=== PATIENT | male | born 1960 | race Caucasian/White ===

== ENCOUNTER 2016-11-18 18:36 | Emergency (ER) | payer BC ==
[2016-11-18 18:47] VITALS: BP 150/96
--- NOTE | 2016-11-18 19:25 | UC ---
Skin Complaint HPI - HPI Summary HPI Summary: 56 yo male abraided his left langford on a pipe this am concerned he might need a tetanus booster review or our records show his last Td was 2014 min pain - History of Current Complaint Chief Complaint: UCLaceration Time Seen by Provider: 11/18/16 19:08 Stated Complaint: LANGFORD INJURY Hx Obtained From: Patient Onset/Duration: Sudden Onset Skin Exposure Onset/Duration: Hours Ago Timing: Constant Onset Severity: Moderate Current Severity: Mild Pain Intensity: 1 Pain Scale Used: 0-10 Numeric Location: Other - left langford Character: Painful Aggravating: Touch Alleviating: Nothing Associated Signs & Symptoms: Positive: Negative - Allergy/Home Medications Allergies/Adverse Reactions: Allergies Allergy/AdvReac Type Severity Reaction Status Date / Time Ciprofloxacin Allergy Intermediate mouth edema Verified 11/18/16 18:47 Review of Systems Constitutional: Negative Skin: Negative Eyes: Negative ENT: Negative Respiratory: Negative Cardiovascular: Negative Gastrointestinal: Negative Genitourinary: Negative Motor: Negative Neurovascular: Negative Musculoskeletal: Negative Neurological: Negative Psychological: Negative All Other Systems Reviewed And Are Negative: Yes PMH/Surg Hx/FS Hx/Imm Hx Previously Healthy: Yes Endocrine History Of: Denies: Diabetes Cardiovascular History Of: Reports: Cardiac Disorders - CARDIAC ABLASION 2007, Hypertension Denies: Pacemaker/ICD GI/ History Of: Reports: Ulcer Denies: Renal Disease - Surgical History Surgical History: Yes Surgery Procedure, Year, and Place: small bowel resection 2010. appendectomy 2010. GALL BLADDER 2008. CARDIAC ABLASION REMOVAL 2007 - Family History Known Family History: Positive: Hypertension - Social History Alcohol Use: Occasionally Substance Use Type: None Smoking Status (MU): Never Smoked Tobacco - Immunization History Most Recent Tetanus Shot: 08/17/14 Physical Exam Triage Information Reviewed: Yes Appearance: Well-Appearing, No Pain Distress, Well-Nourished Vital Signs: Initial Vital Signs Temp 97.2 F 11/18/16 18:43 Pulse 78 11/18/16 18:43 Resp 16 11/18/16 18:43 BP 150/96 11/18/16 18:43 Vital Signs Reviewed: Yes Eyes: Positive: Conjunctiva Clear ENT: Positive: Normal ENT inspection. Negative: Nasal congestion, Nasal drainage, Trismus, Muffled/hoarse voice Neck: Positive: Supple, Nontender Respiratory: Positive: Lungs clear, Normal breath sounds, No respiratory distress Cardiovascular: Positive: RRR, No Murmur Musculoskeletal: Positive: ROM Intact, No Edema Neurological: Positive: Alert Skin Exam: Other - three small superficial abrasions to left langford Course/Dx - Diagnoses Provider Diagnoses: abrasions left langford Discharge - Discharge Plan Condition: Stable Disposition: HOME Prescriptions: Mupirocin 2% OINT* [Bactroban 2 % Oint*] 1 applic TOPICAL TID #1 tube Patient Education Materials: Abrasion (ED) Referrals: Manuel Snider MD [Primary Care Provider] - If Needed Additional Instructions: gently clean 2-3 x daily with soap and water dry apply a thin film of antibiotic oint (bactroban) recheck for concerns of infection your last tetanus was 2013
== END 2016-11-18 19:29 | disposition home or self-care (01) ==
LOC: UCEAST 18:36
DX: S80.812A Abrasion, left lower leg, initial encounter (principal); W22.8XXA Striking against or struck by other objects, initial encounter; Y93.9 Activity, unspecified; Y92.9 Unspecified place or not applicable; Z88.1 Allergy status to other antibiotic agents; I51.89 Other ill-defined heart diseases; Z90.49 Acquired absence of other specified parts of digestive tract
CPT/HCPCS: 99212; G0463

== ENCOUNTER 2017-09-10 17:30 | Emergency (ER) | payer BC ==
[2017-09-10 17:58] VITALS: BP 144/86
[2017-09-10] MEDS ORDERED: Tetan/Diph/Pertus SYR(Tdap)* 0.5 ML SYR(BOOSTRIX) use SYR IM ONE (18:08)
[2017-09-10] MEDS ORDERED: Lidocaine 2% PF * 5 ML VIAL INJ ONE (18:33)
--- NOTE | 2017-09-10 19:18 | UC ---
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 - History Of Current Complaint Chief Complaint: UCLaceration Stated Complaint: FINGER LACERATION Time Seen by Provider: 09/10/17 17:48 Hx Obtained From: Patient, Family/Woven Blind Loom Tender Laceration Location: Finger Mechanism Of Injury: Sharp Trauma Onset/Duration: Lasting Hours Severity: Mild Aggravating Factors: Nothing Related History: Dominant Hand Right - Allergies/Home Medications Allergies/Adverse Reactions: Allergies Allergy/AdvReac Type Severity Reaction Status Date / Time Ciprofloxacin Allergy Intermediate mouth edema Verified 09/10/17 17:48 PMH/Surg Hx/FS Hx/Imm Hx Previously Healthy: Yes - Surgical History Surgical History: Yes Surgery Procedure, Year, and Place: small bowel resection 2010. appendectomy 2010. GALL BLADDER 2008. CARDIAC ABLASION REMOVAL 2007 - Family History Known Family History: Positive: Hypertension Negative: Blood Disorder - Social History Occupation: Retired Lives: With Family Alcohol Use: Occasionally Substance Use Type: None Smoking Status (MU): Never Smoked Tobacco - Immunization History Most Recent Tetanus Shot: 08/17/14, pt wants a booster. Review of Systems Constitutional: Negative Skin: Other - LACERATION RIGHT SECOND FINGER (PIP JOINT) Eyes: Negative ENT: Negative Respiratory: Negative Cardiovascular: Negative Gastrointestinal: Negative Genitourinary: Negative Motor: Negative Neurovascular: Negative Musculoskeletal: Negative Neurological: Negative Psychological: Negative Is Patient Immunocompromised?: No All Other Systems Reviewed And Are Negative: Yes Physical Exam Triage Information Reviewed: Yes Appearance: Well-Appearing Vital Signs: Initial Vital Signs Temp 98.4 F 09/10/17 17:51 Pulse 62 09/10/17 17:51 Resp 18 09/10/17 17:51 BP 144/86 09/10/17 17:51 Pulse Ox 98 09/10/17 17:51 Vital Signs Reviewed: Yes Eye Exam: Normal ENT Exam: Normal ENT: Positive: Normal ENT inspection Dental Exam: Normal Neck exam: Normal Neck: Positive: Supple, Nontender Respiratory Exam: Normal Respiratory: Positive: Chest non-tender, Lungs clear, Normal breath sounds, No respiratory distress, No accessory muscle use Cardiovascular Exam: Normal Cardiovascular: Positive: RRR, No Murmur, Pulses Normal Abdominal Exam: Normal Musculoskeletal Exam: Normal Musculoskeletal: Positive: Strength Intact, ROM Intact, No Edema Neurological Exam: Normal Psychological: Positive: Normal Response To Family Skin: Positive: Other - LACERATION RIGHT SECOND FINGER (PIP JOINT) Laceration Repair - Laceration Repair 1 Description: Linear Laceration Size After Repair: Length (cm) - 2, Width (mm) - 10, Depth (mm) - 4 Type Injection: Digital Anesthesia Used: 2.0% Lido Cleansing Completed Via Routine Prep: Yes Irrigation With Pressure Irrigation Device: Yes Closure Material: Sutures Closure Method: Single Layer Suture Of: Skin, SQ Suture Type: Prolene - 5 X 4-0 Laceration Course/Dx - Differential Dx - Laceration/Wound Differental Diagnoses: Joint Infection, Laceration Provider Diagnoses: LACERATION RIGHT SECOND FINGER (PIP JOINT) WITH REPAIR; TETANUS PROPHYLAXIS Discharge - Discharge Plan Condition: Stable Disposition: HOME Prescriptions: Cephalexin CAP* [Keflex CAP*] 500 mg PO TID #21 cap Patient Education Materials: Finger Laceration (ED) Referrals: Manule Snider MD [Primary Care Provider] - Additional Instructions: HAVE SUTURES REMOVED IN TEN DAYS.
== END 2017-09-10 19:48 | disposition home or self-care (01) ==
LOC: UCEAST 17:30
DX: S61.210A Laceration without foreign body of right index finger without damage to nail, initial encounter (principal); W27.8XXA Contact with other nonpowered hand tool, initial encounter; Y93.9 Activity, unspecified; Y92.9 Unspecified place or not applicable; Z88.1 Allergy status to other antibiotic agents; Z90.49 Acquired absence of other specified parts of digestive tract; Z23 Encounter for immunization
CPT/HCPCS: 12001; 90471; 90715; 99212; G0463

== ENCOUNTER 2019-04-19 15:13 | Emergency (ER) | payer BC ==
[2019-04-19 15:32] VITALS: BP 132/81
--- NOTE | 2019-04-19 15:35 | UC ---
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 Sustained a laceration to left thumb. He is right handed. Bandaged the area and came to . He is unsure the date of his last tetanus. - History Of Current Complaint Chief Complaint: UCLaceration Stated Complaint: THUMB LACERATION Time Seen by Provider: 04/19/19 15:35 Hx Obtained From: Patient Laceration Location: Finger Mechanism Of Injury: Blunt Trauma Onset/Duration: Sudden Onset Pain Intensity: 0 - Allergies/Home Medications Allergies/Adverse Reactions: Allergies Allergy/AdvReac Type Severity Reaction Status Date / Time ciprofloxacin [From Cipro] Allergy Severe MOUTH EDEMA Verified 04/19/19 15:32 PMH/Surg Hx/FS Hx/Imm Hx - Additional Past Medical History Additional PMH: Crohn's - Surgical History Surgical History: Yes Surgery Procedure, Year, and Place: small bowel resection 2010. appendectomy 2010. GALL BLADDER 2008. CARDIAC ABLASION 2007 - Family History Known Family History: Positive: Hypertension Negative: Blood Disorder - Social History Alcohol Use: Occasionally Substance Use Type: None Smoking Status (MU): Never Smoked Tobacco - Immunization History Most Recent Tetanus Shot: 08/17/14, pt wants a booster. Review of Systems All Other Systems Reviewed And Are Negative: Yes Constitutional: Positive: Negative Skin: Positive: Other - Laceration left thumb Respiratory: Positive: Negative Cardiovascular: Positive: Negative Neurovascular: Positive: Negative Musculoskeletal: Positive: Negative Neurological: Positive: Negative Psychological: Positive: Negative Physical Exam - Summary Physical Exam Summary: GENERAL: NAD. WDWN. No pain distress. SKIN: LEFT THUMB: dorsal aspect at MCP with 1.5cm linear laceration partial thickness. Scant bleeding. Clean appearing without FB. No tendon involvement. CHEST: No accessory muscle use. Breathing comfortably and in no distress. CV: Pulses intact. Cap refill <2seconds MSK: FROM at left thumb with intact strength NEURO: Alert. PSYCH: Age appropriate behavior. Triage Information Reviewed: Yes Vital Signs: Initial Vital Signs Temp 97.3 F 04/19/19 15:27 Pulse 65 04/19/19 15:27 Resp 16 04/19/19 15:27 BP 132/81 04/19/19 15:27 Pulse Ox 97 04/19/19 15:27 Vital Signs Reviewed: Yes Laceration Repair - Laceration Repair 1 Description: Linear Laceration Size After Repair: Length (cm) - 1.5 Modified For Repair: No Anesthesia Used: 2.0% Lido Irrigation With Pressure Irrigation Device: Yes Closure Material: Sutures - #3 Closure Method: Single Layer Suture Of: Skin Suture Type: Prolene - 5-0 Laceration Course/Dx - Course/Dx Course Of Treatment: The procedure was explained to the pt and all questions were answered. A time out was performed, witnessed, and signed. The area was irrigated with 200mL sterile saline. 1mL of 2% lidocaine without epi was administered and good anesthetization was achieved. In the usual sterile fashion, THREE 5-0 prolene interrupted sutures were placed. The wound was bandaged with tubgauze . Pt tolerated procedure well. tdap updated today - Diagnosis Provider Diagnosis: Laceration of left thumb Discharge - Sign-Out/Discharge Documenting (check all that apply): Patient Departure All imaging exams completed and their final reports reviewed: No Studies - Discharge Plan Condition: Stable Disposition: HOME Prescriptions: Cephalexin CAP* [Keflex CAP*] 500 mg PO BID #10 cap Patient Education Materials: Care For Your Stitches (ED), Laceration (ED) Referrals: Manuel Snider MD [Primary Care Provider] - Additional Instructions: If you develop a fever, shortness of breath, chest pain, new or worsening symptoms - please call your PCP or go to the ED immediately. 1) Please keep the area bandaged, clean, dry, and intact for the next 24- 48hours and then keep covered daily with a bandaged until sutures are removed. 2) If you develop a fever, colored or thick discharge, increased pain or swelling - please call your PCP or return for a wound check. 3) Please return in 7-10 days to have your THREE sutures removed. - Billing Disposition and Condition Condition: STABLE Disposition: Home
[2019-04-19] MEDS ORDERED: Tetan/Diph/Pertus SYR(Tdap)* 0.5 ML SYR(BOOSTRIX) use SYR IM ONE (15:46)
[2019-04-19] MEDS ORDERED: Lidocaine 2% PF * 5 ML VIAL INJ ONE (15:54)
== END 2019-04-19 16:45 | disposition home or self-care (01) ==
LOC: UCEAST 15:13
DX: S61.012A Laceration without foreign body of left thumb without damage to nail, initial encounter (principal); W22.8XXA Striking against or struck by other objects, initial encounter; Y93.19 Activity, other involving water and watercraft; Y92.832 Beach as the place of occurrence of the external cause; Y99.8 Other external cause status; K50.90 Crohn's disease, unspecified, without complications
CPT/HCPCS: 12001; 90715; 96372; 99212; G0463